=== PATIENT | female | born 1970 | race African-American/Black ===

== ENCOUNTER 2018-09-06 14:22 | Emergency (ER) | payer MEDICARE, OTHER ==
[~2018-09-06] VITALS: Ht 170.2 cm; Wt 97.0 kg
[~2018-09-06 14:22] MED LIST: MELO-106 PO; METO-539 PO; NORT10CA PO; TRAM50TA3 PO
[2018-09-06 22:51] LABS: BASOPHILS % 0.8 % (0.0-2.0); EOSINOPHILS % 2.7 % (0.0-5.0); HEMATOCRIT. 39.7 % (36.0-48.0); HEMOGLOBIN. 13.4 g/dL (12.0-16.0); LYMPHOCYTES % 38.8 % (20.0-50.0); MEAN CORPUSCULAR HEMOGLOBIN 30.6 pg (28.0-32.0); MEAN CORPUSCULAR VOLUME 90.7 fL (81.0-99.0); MEAN PLATELET VOLUME 8.6 fl (7.4-10.4); MONOCYTES % 9.3 % (2.0-8.0); NEUTROPHILS % 48.4 % (40.0-76.0); PLATELET 260 x1000/uL (130-400); RED BLOOD CELL COUNT 4.38 mill/uL (4.2-5.4)
[2018-09-06 22:57] LABS: CHLORIDE 109 mEq/L (98-107)
[2018-09-06 23:24] VITALS: BP 131/106
== END 2018-09-06 23:27 | disposition home or self-care (01) ==
LOC: ER 14:22
DX: J45.909 Unspecified asthma, uncomplicated (principal); Z77.120 Contact with and (suspected) exposure to mold (toxic); M79.7 Fibromyalgia; G35 Multiple sclerosis; M93.1 Kienbock's disease of adults; R19.7 Diarrhea, unspecified; R07.89 Other chest pain; F17.200 Nicotine dependence, unspecified, uncomplicated; Z88.6 Allergy status to analgesic agent; Z79.899 Other long term (current) drug therapy; Z90.710 Acquired absence of both cervix and uterus; Z98.890 Other specified postprocedural states
CPT/HCPCS: 36415; 71045; 99284